=== PATIENT | female | born 1970 | race Caucasian/White ===

== ENCOUNTER 2017-03-13 13:20 | Emergency (ER) | payer BC ==
[~2017-03-13] VITALS: Ht 175.3 cm; Wt 70.3 kg
[2017-03-13] MEDS ORDERED: NKM (13:31)
--- NOTE | 2017-03-13 13:41 | Emergency Room Report ---
History of Present Illness General Chief Complaint: Upper Respiratory Illness Source: Patient Present Illness HPI The patient is a 46-year-old female presenting for chills, subjective fevers, and cough for the past week. She states that she frequently gets bronchitis and this feels the same. She notes a smoking half a pack of cigarettes a day. She denies any known sick contacts. Pain is a 7/10 burning sensation to the chest which occurs with coughing only. She denies other symptoms including N, V , dizziness, hemoptysis, SOB Allergies: Coded Allergies: PENICILLINS (Verified Allergy, Unknown, 03/13/17) Patient History Past Medical History: see triage record Pertinent Family History: none Social History: Reports: smoking Last Menstrual Period: Partial hyst Reviewed Nursing Documentation: PMH: Agreed, PSxH: Agreed Nursing Documentation-PMH Hx Cancer: No - Benign fibroid uterine fibroids Review of Systems All Other Systems: negative except mentioned in HPI Physical Exam Vital Signs Date Time Temp Pulse Resp B/P (MAP) Pulse Ox O2 Delivery O2 Flow Rate FiO2 03/13/17 13:26 98.8 63 16 121/79 100 Room Air Sp02 EP Interpretation: reviewed, normal General Appearance: no apparent distress, alert, GCS 15, non-toxic Head: normocephalic, atraumatic Eyes: bilateral eye normal inspection, bilateral eye PERRL ENT: hearing grossly normal, normal pharynx, no angioedema, normal voice Neck: full range of motion, supple/symm/no masses Respiratory: chest non-tender, no retraction, no accessory muscle use, wheezing - minimal throughout Cardiovascular #1: regular rate, rhythm, no edema Gastrointestinal: normal bowel sounds, non tender, soft, non-distended, no guarding, no rebound Rectal: deferred Musculoskeletal: back normal, gait/station normal, normal range of motion, non- tender Neurologic: alert, oriented x3, responsive, motor strength/tone normal, sensory intact, speech normal Psychiatric: judgement/insight normal, memory normal, mood/affect normal, no suicidal/homicidal ideation Skin: normal color, no rash, warm/dry, well hydrated Medical Decision Making PA Attestation Dr. Culver is my supervising physician. Patient management was discussed with my supervising physician Diagnostic Impression: Primary Impression: Atypical pneumonia ER Course The patient is a 46-year-old female presenting for cough, subjective fevers and chills Differential diagnosis include but not limited to pharyngitis, sinusitis, AOM, bronchitis, PNA PE: afebrile. No tachypnea. No apparent distress. No TTP over maxillary or frontal sinuses. Lungs: diffuse wheezing. No accessory muscle use. No resp distress Heart: RRR, no abnormal heart sounds Ears: external auditory canal clear. Non erythematous. Bilat TM intact. Cone of light present bilat. No bulging of TM. No serous fluid seen. no nasal D/C Nor cervical lymphad No tonsillar exudate. Uvula midline.Oropharynx non erythematous Chest x-ray is unremarkable The patient will be discharged home with a prescription for Albuterol, cough medication, and azithromycin. Chest X-Ray Diagnostic Results Chest X-Ray Diagnostic Results : Chest X-Ray Ordered: Yes # of Views/Limited/Complete: 1 View Indication: Other - cough PA Xray: Interpretation reviewed, by supervising MD, and agrees with findings. Interpretation: no consolidation, no effusion, no pneumothorax, no acute cardiopulmonary disease Impression: No acute disease Electronically Signed by: Taco Traore PA-C Last Vital Signs Date Time Temp Pulse Resp B/P (MAP) Pulse Ox O2 Delivery O2 Flow Rate FiO2 03/13/17 13:26 98.8 63 16 121/79 100 Room Air Status: improved Disposition: HOME, SELF-CARE Condition: Improved Scripts Albuterol Sulfate* (PROAIR HFA*) 8.5 Gm Hfa.aer.ad 2 PUFFS INH Q6H, #8.5 GM 0 Refills Prov: TACO TRAOREARenetta 03/13/17 Azithromycin* (ZITHROMAX*) 250 Mg Tablet 250 MG ORAL DAILY, #6 TAB 0 Refills Take two tables once daily for 1 day, then one tablet once daily for 4 days. Prov: TACO TRAORE P.A. 03/13/17 D-Methorphan Hb/Prometh Hcl* (PROMETHAZINE-DM SYRUP*) 118 Ml Syrup 5 ML ORAL Q6H Y for For Cough, #118 ML 0 Refills Prov: TACO TRAORE.ARenetta 03/13/17 TACO TRAORE Mar 13, 2017 13:41
[2017-03-13] MEDS ORDERED: ZITHROMAX250 MG ORAL (13:51)
[2017-03-13] MEDS ORDERED: PROMETHAZINE-D118 ML ORAL (13:51)
[2017-03-13] MEDS ORDERED: PROAIR HFA8.5 GM INH (13:51)
[2017-03-13 13:55] VITALS: BP 125/80
--- NOTE | 2017-03-13 15:12 | Diagnostic Imaging Report ---
Indication: COUGH, shortness of breath Technique: One view of the chest Comparison: none Findings: Lungs and pleural spaces are clear. Heart size is normal. Impression: No acute process
== END 2017-03-13 13:55 | disposition home or self-care (01) ==
LOC: EMR 13:50
DX: J18.9 Pneumonia, unspecified organism (principal); J06.9 Acute upper respiratory infection, unspecified; D25.9 Leiomyoma of uterus, unspecified; Z88.0 Allergy status to penicillin; Z87.891 Personal history of nicotine dependence; R05 Cough
CPT/HCPCS: 71010; 99284

== ENCOUNTER 2018-02-05 23:02 | Emergency (ER) | payer BC ==
[~2018-02-05] VITALS: Ht 175.3 cm; Wt 71.7 kg
[~2018-02-05 23:02] MED LIST: NKM; PROAIR HFA8.5 GM INH; PROMETHAZINE-D118 ML ORAL; ZITHROMAX250 MG ORAL
[2018-02-05 23:50] VITALS: BP 111/76
[2018-02-06] VITALS: BP_SYST 110; BP_SYST 120; BP_DIAS 79; BP_DIAS 80
--- NOTE | 2018-02-06 00:35 | Emergency Room Report ---
History of Present Illness General Chief Complaint: Upper Extremity Injury Source: Patient Present Illness HPI 47-year-old female presents ED for evaluation. Patient complaining of right hand pain. States that she punched a VCR tonight. Complaining of pain to her fourth and fifth digit. Throbbing, 8 out of 10, nonradiating. Denies any other injuries. No other aggravating relieving factors. Denies any other associated symptoms Allergies: Coded Allergies: PENICILLINS (Verified Allergy, Unknown, 02/05/18) Patient History Past Medical History: none Past Surgical History: none Pertinent Family History: none Social History: Denies: smoking, alcohol use, drug use Last Menstrual Period: unk Now: No - partial hysterectomy 2012 Immunizations: UTD Reviewed Nursing Documentation: PMH: Agreed; PSxH: Agreed Nursing Documentation-PMH Past Medical History: No History, Except For Hx Cancer: No - Benign fibroid uterine fibroids Review of Systems All Other Systems: negative except mentioned in HPI Physical Exam Vital Signs Date Time Temp Pulse Resp B/P (MAP) Pulse Ox O2 Delivery O2 Flow Rate FiO2 02/05/18 23:05 98.4 58 16 111/76 98 Room Air 98.4 Sp02 EP Interpretation: reviewed, normal General Appearance: no apparent distress, alert, GCS 15, non-toxic Head: normocephalic Eyes: bilateral eye normal inspection, bilateral eye PERRL ENT: normal ENT inspection Neck: normal inspection Respiratory: normal inspection Cardiovascular #1: normal inspection Gastrointestinal: normal inspection Rectal: deferred Genitourinary: no CVA tenderness Musculoskeletal: normal range of motion, tender - R hand Neurologic: alert, oriented x3, responsive, motor strength/tone normal, sensory intact, speech normal Psychiatric: normal inspection Skin: normal inspection Lymphatic: normal inspection Procedures Splinting Splinting : Consent: Verbal Pre-Made Type: velcro Splint: wrist Pre-Proc Neuro Vasc Exam: normal Post-Proc Neuro Vasc Exam: normal Patient Tolerated: Well Complications: None Medical Decision Making Diagnostic Impression: Primary Impression: Hand contusion Qualified Codes: S60.221A - Contusion of right hand, initial encounter ER Course Hospital Course 47-year-old F presents to ED complaining of R hand pain s/p punched object Differential diagnoses include: Fracture, dislocation, sprain, contusion Clinical course Patient placed on stretcher. After initial history and physical, I ordered xrays of R hand Patient declined pain medication Xrays prelim read shows no acute fracture/dislocation. I discussed findings with patient. We will provide splint for symptomatic relief. Patient declined splint. Became upset and walked out of ED without her discharge papers Diagnosis - hand contusion Stable and discharged to home. apply ice, keep elevated. weight bear as tolerated. Followup with PMD. Return to ED if symptoms recur or worsen Other X-Ray Diagnostic Results Other X-Ray Diagnostic Results : X-Ray ordered: Right hand # of Views/Limited Vs Complete: 3 View Indication: Pain EP Interpretation: Yes Interpretation: no dislocation, no soft tissue swelling, no fractures Impression: No acute disease Electronically Signed by: Electronically signed by Luis Miguel Guerrero MD Last Vital Signs Date Time Temp Pulse Resp B/P (MAP) Pulse Ox O2 Delivery O2 Flow Rate FiO2 02/05/18 23:05 98.4 58 16 111/76 98 Room Air 98.4 Status: improved Disposition: HOME, SELF-CARE Condition: Stable Patient Instructions: Hand Contusion, Izmw-[id number] Luis Miguel Guerrero MD Feb 06, 2018 00:35
--- NOTE | 2018-02-06 12:01 | Diagnostic Imaging Report ---
Indication: Pain in fourth and fifth metacarpals after punching wall 2 hours ago Technique: 3 views right hand Comparison: None Findings: No acute fractures. No dislocations. Questionable soft tissue swelling and irregularity involving the fourth and fifth digits proximally. The joint spaces are preserved. Small well-corticated osseous fragment is seen at the lateral aspect of the first interphalangeal joint. Impression: No acute bony trauma Possible soft tissue injury to the fourth and fifth digits-correlate with clinical findings Small ossific density at the first interphalangeal joint, may reflect old injury. This agrees with the preliminary interpretation provided by the emergency room physician
== END 2018-02-06 | disposition home or self-care (01) ==
LOC: EMR 23:21
DX: S60.221A Contusion of right hand, initial encounter (principal); W22.8XXA Striking against or struck by other objects, initial encounter; Y92.9 Unspecified place or not applicable; Z88.0 Allergy status to penicillin
CPT/HCPCS: 99282

== ENCOUNTER 2018-05-28 13:49 | Emergency (ER) | payer BC ==
[~2018-05-28] VITALS: Ht 175.3 cm; Wt 70.3 kg
[2018-05-28 14:04] VITALS: BP 122/79
--- NOTE | 2018-05-28 14:04 | NUR ---
ED Nurse Note: pt walked in c/o left foot pain 4th toe, pt states she jammed her foot in the shower, denies fall, denies any other injuries. pt AA&ox4, gcs=15, skin warm and dry, resp even and unlabored, noted tenderness, redness and discoloration on left 4th toe area. cool to touch. no open wound. pt ambulates w/steady gait, spouse member at bedside, will cont monitor.
--- NOTE | 2018-05-28 14:22 | Emergency Room Report ---
History of Present Illness General Chief Complaint: Lower Extremity Injury Source: Patient Present Illness HPI Patient presents with complaints of pain to the left fourth toe Patient reports that happened yesterday after watching the super bowl she jammed it while taking a shower Pain is 7 out of 10 denies any ankle pain denies any knee pain Denies any abdominal pain denies any chest pain or shortness of breath Allergies: Coded Allergies: PENICILLINS (Verified Allergy, Unknown, 05/28/18) Patient History Past Medical History: see triage record Pertinent Family History: none Last Menstrual Period: partial hysterectomy Now: No : 0 Reviewed Nursing Documentation: PMH: Agreed; PSxH: Agreed Nursing Documentation-PMH Past Medical History: No History, Except For Hx Cancer: No - Benign fibroid uterine fibroids Review of Systems All Other Systems: negative except mentioned in HPI Physical Exam Vital Signs Date Time Temp Pulse Resp B/P (MAP) Pulse Ox O2 Delivery O2 Flow Rate FiO2 05/28/18 14:04 97.5 60 16 122/79 100 Room Air Sp02 EP Interpretation: reviewed, normal General Appearance: well appearing, no apparent distress Head: normocephalic, atraumatic Eyes: bilateral eye PERRL, bilateral eye EOMI ENT: normal pharynx Respiratory: lungs clear, no retraction Musculoskeletal: other - Ecchymosis and bruising to the base of the left fourth toe tender on palpation appears to be closed Neurologic: alert, oriented x3 Skin: other - As above Lymphatic: no adenopathy Procedures Splinting Splinting : Consent: Verbal Location: Left foot Pre-Made Type: post op Shoe Splint: Pre-Proc Neuro Vasc Exam: normal Post-Proc Neuro Vasc Exam: normal Patient Tolerated: Well Complications: None Progress cane for non-weight bearing Medical Decision Making Diagnostic Impression: Primary Impression: Toe fracture ER Course Given the patient's history exam and presentation consideration for acute fracture is made Patient had imaging done On preliminary review by myself I do entertain the possibility of proximal PIP fracture on the fourth toe Patient is provided with instructions regarding toe fracture Radiology was discussed regarding the imaging a did not feel that there was any obvious fracture with any dislocation however small fracture could be possible Patient will continue to have close outpatient follow-up was provided with postop shoe and cane for nonweightbearing And requires close podiatry outpatient follow-up Other X-Ray Diagnostic Results Other X-Ray Diagnostic Results : X-Ray ordered: Left foot # of Views/Limited Vs Complete: 3 View Indication: Pain EP Interpretation: Yes Interpretation: no dislocation, no soft tissue swelling, other - Left fourth PIP fracture nondisplaced, Impression: Other - Acute fourth toe fracture Electronically Signed by: Luis Enrique Iglesias DO Last Vital Signs Date Time Temp Pulse Resp B/P (MAP) Pulse Ox O2 Delivery O2 Flow Rate FiO2 05/28/18 14:04 97.5 60 16 122/79 100 Room Air Status: improved Disposition: HOME, SELF-CARE Condition: Improved Scripts Ibuprofen* (MOTRIN*) 600 Mg Tablet 600 MG ORAL Q8H PRN for For Pain, #20 TAB 0 Refills Prov: Luis Enrique Iglesias DO 05/28/18 Additional Instructions: Patient is provided with the discharge instructions notified to follow up with primary doctor in the next 2-3 days otherwise return to the er with any worsening symptoms. Please note that this report is being documented using [employer] technology. This can lead to erroneous entry secondary to incorrect interpretation by the dictating instrument. Luis Enrique Iglesias DO May 28, 2018 14:22
[2018-05-28] MEDS ORDERED: IBUPROFEN600 MG ORAL (15:13)
--- NOTE | 2018-05-28 15:20 | NUR ---
ED Nurse Note: pt cleared to d/c per ERMD, pt ortho foot and cane provided per technical sales engineer, pt discharge instruction provided w/ prescription, pt advised to return to ed if s/s worsen or new s/s develop, follow up with pcp to continue care, pt education done via discussion and hand out, pt verbalized understanding and agrees with plan. pt ambulatory w/steady gait, vss, resp even and unlabored, no neuro changes, all belongings left with pt. pt accompanied by spouse member.
--- NOTE | 2018-05-28 16:25 | Diagnostic Imaging Report ---
Indication: Foot pain Comparison: None Findings: 3 views of the left foot were obtained. No acute fractures, malalignment, erosions or periostitis are identified. Soft tissues are unremarkable. There is a plantar calcaneal spur. Impression: No acute findings
== END 2018-05-28 15:29 | disposition home or self-care (01) ==
LOC: EMR 15:20
DX: S92.515A Nondisplaced fracture of proximal phalanx of left lesser toe(s), initial encounter for closed fracture (principal); W23.0XXA Caught, crushed, jammed, or pinched between moving objects, initial encounter; Y93.E1 Activity, personal bathing and showering; Y92.009 Unspecified place in unspecified non-institutional (private) residence as the place of occurrence of the external cause; Z88.0 Allergy status to penicillin
CPT/HCPCS: 99283